=== PATIENT | female | born 1995 | race Two or more races ===

== ENCOUNTER → 2018-08-28 | Outpatient (CLI) | payer BC ==
[2018-08-28 13:48] LABS: PLATELET COUNT, AUTOMATED 417 K/uL (150-450)
== END ==
LOC: LAB 13:22
PROVIDERS: ATTEND Pediatrics Adolescent Medicine
DX: R53.83 Other fatigue (principal); L65.9 Nonscarring hair loss, unspecified
CPT/HCPCS: 36415; 82728; 83036; 83540; 83550; 84439; 84443; 85025

== ENCOUNTER → 2018-10-24 | Outpatient (CLI) | payer BC ==
--- NOTE | 2018-10-24 12:07 | EKG ---
FACILITY: [facility] PATIENT NAME: PEGGY SOTOMAYOR : [id number] MR: [id number]: [id number] EXAM DATE: ORDERING PHYSICIAN: GULSHAN TOURE TECHNOLOGIST: ARELI Test Reason : MEDICATION Blood Pressure : / mmHG Vent. Rate : 056 BPM Atrial Rate : 056 BPM P-R Int : 146 ms QRS Dur : 084 ms QT Int : 410 ms P-R-T Axes : -02 075 049 degrees QTc Int : 395 ms Sinus bradycardia Otherwise normal ECG No previous ECGs available Confirmed by KIM YOUNGBLOOD ([id number]) on 10/24/2018 4:19:09 PM Referred By: ZHANNA Confirmed By:KIM YOUNGBLOOD
== END ==
LOC: RESP 11:49
PROVIDERS: ATTEND Nurse Practitioner Psychiatric/Mental Health
DX: R00.1 Bradycardia, unspecified (principal)
CPT/HCPCS: 93005